=== PATIENT | female | born 1955 | race American Indian/Alaskan Native ===

== ENCOUNTER 2020-04-23 03:07 | Emergency (ER) | payer OTHER ==
[2020-04-23] MEDS ORDERED: ONDANSETRON 4 MG/2 ML INJ IV ONE ×2 (03:12→04:15)
[2020-04-23] MEDS ORDERED: SODIUM CHLORIDE 0.9% 1000 ML 1,000 ML IV ONE ×2 (03:12→06:04)
[2020-04-23] MEDS ORDERED: HYOSCYAMINE SUBL 0.125 MG TAB SL ONE (03:15)
--- NOTE | 2020-04-23 03:22 | Emergency Department Report ---
Blank Doc - Documentation Documentation: 34-year-old female past medical history of hypertension and and diverticuli re sents emerged department complaining of lower sudden onset of abdominal pain radiates to the epigastric region and in the chest sharp and burning in nature associated with palpitations and presyncope nausea and vomiting but no hemoptysis, no hematemesis no hematochezia. Abdominal pain is severe she states this feels similar to when she had diverticulitis This initial assessment/diagnostic orders/clinical plan/treatment(s) is/are subject to change based on patients health status, clinical progression and re- assessment by fellow clinical providers in the ED. Further treatment and workup at subsequent clinical providers discretion. Patient/guardian urged not to elope from the ED as their condition may be serious if not clinically assessed and managed. Initial orders include: Labs, EKG, CT scan abdomen due to the severity of her abdominal pain patient history
[2020-04-23 03:50] LABS: Basophils # (Auto) 0.2 K/mm3 (0.0-0.1); Basophils % (Auto) 2.3 % (0.0-1.8); Eosinophils % (Auto) 0.1 % (0.0-4.3); Hemoglobin 13.7 gm/dl (10.1-14.3); Lymphocytes # (Auto) 1.7 K/mm3 (1.2-5.4); Mean Corpuscular HGB Conc 35 % (30-34); Mean Corpuscular Volume 98 fl (79-97); Monocytes # (Auto) 0.5 K/mm3 (0.0-0.8); Monocytes % (Auto) 6.4 % (0.0-7.3); Platelet Count 309 K/mm3 (140-440); Red Blood Count 3.99 M/mm3 (3.65-5.03); Red Cell Distribution Width 14.6 % (13.2-15.2)
[2020-04-23 04:09] LABS: Alanine Aminotransferase 15 units/L (7-56); Albumin 4.9 g/dL (3.9-5); BUN/Creatinine Ratio 21; Blood Urea Nitrogen 21 mg/dL (7-17); Calcium 9.5 mg/dL (8.4-10.2); Hemolysis Index 6
[2020-04-23] MEDS ORDERED: FAMOTIDINE 20 MG/2 ML INJ IV ONE (04:15)
[2020-04-23] MEDS ORDERED: MORPHINE 4 MG/1 ML INJ IV ONE (04:15)
--- NOTE | 2020-04-23 04:17 | Emergency Department Report ---
<HERNAN DIXON - Last Filed: 04/23/20 06:14> ED N/V/D HPI - General Chief complaint: Nausea/Vomiting/Diarrhea Stated complaint: EMESIS Time Seen by Provider: 04/23/20 03:30 Source: patient Mode of arrival: Stretcher Limitations: No Limitations - History of Present Illness Initial comments: 64-year-old female with a past medical history of multiple bouts of diverticulitis without previous abdominal surgery and hypertension presents to the hospital with complaints of abdominal pain, nausea, vomiting with p.o. intolerance x1 day. Patient complains of generalized moderate to severe cramping and sharp abdominal pain worse with palpation and without alleviating factors. She reports vomiting greater than 15 times today including vomiting up her BP medication and multiple episodes of loose stool. She denies melena, hematochezia, fever, or hematemesis. She states symptoms feel similar to previous diverticulitis episodes - Related Data Home Medications Medication Instructions Recorded Confirmed Last Taken Amlodipine Besylate [Norvasc] 5 mg PO QPM 04/06/18 04/06/18 Unknown Azilsartan Medoxomil [Edarbi] 80 mg PO DAILY 04/06/18 04/06/18 Unknown Ergocalciferol [Vitamin D2] 1 cap PO QWEEK 04/06/18 04/06/18 Unknown Esomeprazole Magnesium [NexIUM] 40 mg PO QDAY 04/06/18 04/06/18 Unknown Metoprolol Succinate [Toprol Xl] 100 mg PO BID 04/06/18 04/06/18 Unknown Potassium Chloride [K-Dur] 20 meq PO QDAY 04/06/18 04/06/18 Unknown Rosuvastatin Calcium 20 mg PO HS 04/06/18 04/06/18 Unknown hydroCHLOROthiazide [HCTZ] 25 mg PO QDAY 04/06/18 04/06/18 Unknown Previous Rx's Medication Instructions Recorded Last Taken Type HYDROcodone/APAP 5-325 [[place] 1 - 2 each PO Q6HR PRN #20 tablet 04/06/18 Unknown Rx 5/325] Promethazine [Phenergan] 25 mg NC Q6HR PRN #5 supp.rect 04/06/18 Unknown Rx levoFLOXacin [Levaquin] 750 mg PO QDAY #10 tablet 04/06/18 Unknown Rx metroNIDAZOLE [Flagyl] 500 mg PO Q8HR #30 tablet 04/06/18 Unknown Rx Allergies Allergy/AdvReac Type Severity Reaction Status Date / Time No Known Allergies Allergy Unverified 04/06/18 14:56 ED Review of Systems Comment: All other systems reviewed and negative ED Past Medical Hx - Past Medical History Previous Medical History?: Yes Hx Hypertension: Yes Additional medical history: Diverticulitis - Surgical History Past Surgical History?: No - Social History Smoking Status: Never Smoker Substance Use Type: None - Medications Home Medications: Home Medications Medication Instructions Recorded Confirmed Last Taken Type Amlodipine Besylate [Norvasc] 5 mg PO QPM 04/06/18 04/06/18 Unknown History Azilsartan Medoxomil [Edarbi] 80 mg PO DAILY 04/06/18 04/06/18 Unknown History Ergocalciferol [Vitamin D2] 1 cap PO QWEEK 04/06/18 04/06/18 Unknown History Esomeprazole Magnesium [NexIUM] 40 mg PO QDAY 04/06/18 04/06/18 Unknown History HYDROcodone/APAP 5-325 [[place] 1 - 2 each PO Q6HR PRN #20 tablet 04/06/18 Unknown Rx 5/325] Metoprolol Succinate [Toprol Xl] 100 mg PO BID 04/06/18 04/06/18 Unknown History Potassium Chloride [K-Dur] 20 meq PO QDAY 04/06/18 04/06/18 Unknown History Promethazine [Phenergan] 25 mg NC Q6HR PRN #5 supp.rect 04/06/18 Unknown Rx Rosuvastatin Calcium 20 mg PO HS 04/06/18 04/06/18 Unknown History hydroCHLOROthiazide [HCTZ] 25 mg PO QDAY 04/06/18 04/06/18 Unknown History levoFLOXacin [Levaquin] 750 mg PO QDAY #10 tablet 04/06/18 Unknown Rx metroNIDAZOLE [Flagyl] 500 mg PO Q8HR #30 tablet 04/06/18 Unknown Rx ED Physical Exam - General Limitations: No Limitations - Other Other exam information: General: No acute distress Head: Atraumatic Eyes: normal appearance ENT: Moist mucous membranes Neck: Normal appearance, no midline tenderness Chest: Clear to auscultation bilaterally CV: Tachycardic regular rhythm Abdomen: Soft, normal bowel sounds, nondistended, generalized abdominal tenderness with guarding. No rebound Back: Normal inspection Extremity: Normal inspection, full range of motion Neuro: Alert O x 3, no facial asymmetry, speech clear, no gross motor sensory deficit Psych: Appropriate behavior Skin: No rash ED Course - Reevaluation(s) Reevaluation #1: 04/23/20 06:14 pt s/o to Dr Trotter to f/u ct results, repeat vitals and dispo as appropriate ED Medical Decision Making - Lab Data Result diagrams: 04/23/20 03:28 04/23/20 03:28 - EKG Data -: EKG Interpreted by Me EKG shows normal: sinus rhythm, intervals (QTC 574), ST-T waves (No STEMI) Rate: tachycardia (126) - Medical Decision Making 64-year-old female presents to the hospital with intractable nausea vomiting and generalized abdominal pain. Present history of diverticulitis reports symptoms are the same. Labs are fairly unremarkable. Patient presented initially with tachycardia. Patient treated with antiemetics, pain medication, IV fluid, Levsin, and morphine. At time of disposition CT abdomen pelvis results and diagnosis pending. Case signed out to oncoming physician Dr. Trotter to follow- up pending results, reassess patient including vital signs, and displays appropriate ED Disposition Clinical Impression: Acute abdominal pain, Acute nausea with nonbilious vomiting, Acute diarrhea Disposition: DC-01 TO HOME OR SELFCARE Condition: Stable Instructions: Nausea and Vomiting, Adult, Diarrhea, Adult, Abdominal Pain, Adult, [id number] Referrals: [facility], [Primary Care Provider] - 3-5 Days <GURU TROTTER - Last Filed: 04/23/20 07:35> ED Review of Systems ROS: Stated complaint: EMESIS Other details as noted in HPI ED Course Vital Signs 04/23/20 04/23/20 04/23/20 03:14 04:23 04:53 Temperature 97.9 F Pulse Rate 129 H Respiratory 18 18 18 Rate Blood Pressure 156/100 O2 Sat by Pulse 98 Oximetry ED Medical Decision Making - Lab Data Result diagrams: 04/23/20 03:28 04/23/20 03:28 - Medical Decision Making Patient is 64 years old female signed out to me by my colleague Dr. Mason. Patient presented to the ER complaining of generalized abdominal pain, vomiting and watery diarrhea started last night. Labs reviewed and is unremarkable. CT abdomen and pelvis showed no evidence of bowel obstruction, acute diverticulitis or any other acute abnormalities. Patient received multiple antiemetic medication and pain medication. Patient stated that she is feeling much better. No more vomiting observed in the ER. Patient given prescription for Zofran and tramadol and advised to follow-up with her primary care physician in the next 2 to 3 days and to return to the ER if she develop any new symptoms. Critical care attestation.: If time is entered above; I have spent that time in minutes in the direct care of this critically ill patient, excluding procedure time. ED Disposition Is pt being admited?: No
[2020-04-23 04:21] LABS: Free T4 (Free Thyroxine) 1.51 ng/dL (0.76-1.46)
[2020-04-23 04:22] LABS: Bilirubin,Direct < 0.2 mg/dL (0-0.2)
--- NOTE | 2020-04-23 06:06 | Cat Scan Report ---
CT ABDOMEN AND PELVIS WITH CONTRAST INDICATION: Pt complains of abdominal pain with N/V. Hx of Diverticulitis CONTRAST: 100 cc Omnipaque 300 IV COMPARISON: 04/06/[address] scans at this location are performed using CT dose reduction for ALARA by means of automated e xposure control. FINDINGS: Scarring is again noted in the lung bases, particularly in the right middle lobe. No pneumo peritoneum is seen. Fatty infiltration of the liver is noted without significant enlargement. Tiny cy st is again seen in the liver. Spleen appears within normal limits. No urinary obstructive changes ar e seen. No lymphadenopathy is noted. No free fluid is seen. Calcified left ovarian lesion is unchange d. No evidence of bowel obstruction is noted. Appendix shows no inflammation. Gallbladder and bile du cts appear within normal limits. Colonic diverticulosis is seen without evidence of diverticulitis. A ppearance of portions of the colon, particularly the descending colon and transverse colon, probably relates to lack of distention rather than pathology but is difficult to evaluate in the collapsed sta te. IMPRESSION: No acute abnormalities are seen Signer Name: Romulo Parry MD Signed: 04/23/2020 6:02 AM Workstation Name: [id number]
[2020-04-23] MEDS ORDERED: METOCLOPRAMIDE 10 MG/2 ML INJ IV ONE (07:33)
[2020-04-23] MEDS ORDERED: HYDROmorphone 1 MG/1 ML INJ IV ONE (07:33)
[2020-04-23 07:35] VITALS: BP 153/83
== END 2020-04-23 08:38 | disposition home or self-care (01) ==
LOC: ED 03:07
DX: R10.84 Generalized abdominal pain (principal); R11.2 Nausea with vomiting, unspecified; R19.7 Diarrhea, unspecified; I10 Essential (primary) hypertension; Z79.899 Other long term (current) drug therapy
CPT/HCPCS: 36415; 74177; 80048; 80076; 83690; 83735; 84439; 84443; 84484; 85025; 93005; 96361; 96374; 96375; 96376; 99284; J1170; J2270; J2405; J2765; J7030; Q9967

== ENCOUNTER 2020-05-24 21:50 | Emergency (ER) | payer OTHER ==
[2020-05-24] MEDS ORDERED: ONDANSETRON 4 MG ODT TAB PO ONE (22:08)
--- NOTE | 2020-05-24 22:10 | Event Note ---
ED Screening Note ED Screening Note: 64-year-old female presents emerge department complaining of nausea vomiting diarrhea for the last few days associated with abdominal pain and cramping that is worse with the vomiting episodes. Reports no fever, chills, sweats reports no hematuria or dysuria. This initial assessment/diagnostic orders/clinical plan/treatment(s) is/are subject to change based on patients health status, clinical progression and re- assessment by fellow clinical providers in the ED. Further treatment and workup at subsequent clinical providers discretion. Patient/guardian urged not to elope from the ED as their condition may be serious if not clinically assessed and managed. Initial orders include: Labs and Zofran will further evaluate for CT
[2020-05-24 23:04] LABS: Basophils # (Auto) 0.1 K/mm3 (0.0-0.1); Basophils % (Auto) 0.6 % (0.0-1.8); Hematocrit 43.3 % (30.3-42.9); Hemoglobin 14.4 gm/dl (10.1-14.3); Lymphocytes # (Auto) 0.8 K/mm3 (1.2-5.4); Lymphocytes % (Auto) 5.6 % (13.4-35.0); Mean Corpuscular HGB Conc 33 % (30-34); Mean Corpuscular Volume 100 fl (79-97); Monocytes # (Auto) 0.6 K/mm3 (0.0-0.8); Monocytes % (Auto) 4.3 % (0.0-7.3); Platelet Count 326 K/mm3 (140-440); Red Blood Count 4.35 M/mm3 (3.65-5.03); Red Cell Distribution Width 14.6 % (13.2-15.2)
[2020-05-24 23:20] LABS: Alanine Aminotransferase 17 units/L (7-56); Albumin 5.4 g/dL (3.9-5); BUN/Creatinine Ratio 16; Blood Urea Nitrogen 16 mg/dL (7-17); Calcium 10.4 mg/dL (8.4-10.2); Hemolysis Index 7
[2020-05-24 23:21] LABS: Bilirubin,Urine NEG (Negative); Blood,Urine SM (Negative); Color,Urine Straw (Yellow); Mucus,Urine FEW /HPF; Urobilinogen,Urine < 2.0 mg/dL (<2.0)
[2020-05-25] MEDS ORDERED: MORPHINE 4 MG/1 ML INJ IV ONE (02:38)
[2020-05-25] MEDS ORDERED: PANTOPRAZOLE 40 MG INJ IV ONE (02:38)
[2020-05-25] MEDS ORDERED: SODIUM CHLORIDE 0.9% 1000 ML 1,000 ML IV ONE (02:38)
--- NOTE | 2020-05-25 02:41 | Emergency Department Report ---
HPI - General Chief Complaint: Abdominal Pain Time Seen by Provider: 05/25/20 02:22 - HPI HPI: This is a 64-year-old -[place] female presents to the emergency department with complaint of generalized abdominal pain, nausea, vomiting and diarrhea. Overall the patient says that this has been going on since she was last in this emergency department about 1 month ago, but it has worsened over the past few days. The patient says that her ribs hurt from all of the vomiting. She says that she has vomited so much today that she is seeing some blood-tinged vomit. She denies any fever, dysuria, vaginal bleeding or discharge. The patient has a history of diverticulitis and hypertension. She has not taken anything for symptoms today prior to presentation. Her primary care physician is a Dr. Channing Donald. No recent travel or sick contacts at home. Currently she describes her abdominal pain as sharp, 9 out of 10 in intensity. It worsens with movement and palpation. No known alleviating factors. ED Past Medical Hx - Past Medical History Previous Medical History?: Yes Hx Hypertension: Yes Additional medical history: Diverticulitis - Surgical History Past Surgical History?: No - Social History Smoking Status: Current Every Day Smoker Substance Use Type: Alcohol, Marijuana - Medications Home Medications: Home Medications Medication Instructions Recorded Confirmed Last Taken Type Amlodipine Besylate [Norvasc] 5 mg PO QPM 04/06/18 04/06/18 Unknown History Azilsartan Medoxomil [Edarbi] 80 mg PO DAILY 04/06/18 04/06/18 Unknown History Ergocalciferol [Vitamin D2] 1 cap PO QWEEK 04/06/18 04/06/18 Unknown History Esomeprazole Magnesium [NexIUM] 40 mg PO QDAY 04/06/18 04/06/18 Unknown History HYDROcodone/APAP 5-325 [[place] 1 - 2 each PO Q6HR PRN #20 tablet 04/06/18 Unknown Rx 5/325] Metoprolol Succinate [Toprol Xl] 100 mg PO BID 04/06/18 04/06/18 Unknown History Potassium Chloride [K-Dur] 20 meq PO QDAY 04/06/18 04/06/18 Unknown History Promethazine [Phenergan] 25 mg OR Q6HR PRN #5 supp.rect 04/06/18 Unknown Rx Rosuvastatin Calcium 20 mg PO HS 04/06/18 04/06/18 Unknown History hydroCHLOROthiazide [HCTZ] 25 mg PO QDAY 04/06/18 04/06/18 Unknown History levoFLOXacin [Levaquin] 750 mg PO QDAY #10 tablet 04/06/18 Unknown Rx metroNIDAZOLE [Flagyl] 500 mg PO Q8HR #30 tablet 04/06/18 Unknown Rx traMADoL [Ultram 50 MG tab] 50 mg PO Q4HR PRN #14 tablet 04/23/20 Unknown Rx Ondansetron [Zofran ODT TAB] 4 mg PO Q8HR PRN #14 tab.rapdis 05/25/20 Unknown Rx ED Review of Systems ROS: Stated complaint: ABD PAIN/EMESIS Other details as noted in HPI Comment: All other systems reviewed and negative Constitutional: denies: chills, fever Eyes: denies: eye pain, vision change ENT: denies: ear pain, throat pain Respiratory: denies: cough, shortness of breath Cardiovascular: denies: chest pain, palpitations Gastrointestinal: abdominal pain, nausea, vomiting, diarrhea Genitourinary: denies: dysuria, discharge Musculoskeletal: denies: back pain, arthralgia Skin: denies: rash, lesions Neurological: denies: headache, weakness Physical Exam - Physical Exam Vital Signs: Vital Signs 05/24/20 22:03 Temperature 98.4 F Pulse Rate 111 H Respiratory 16 Rate Blood Pressure 171/91 O2 Sat by Pulse 95 Oximetry Physical Exam: GENERAL: The patient is well-developed well-nourished. HENT: Normocephalic. Atraumatic. Patient has moist mucous membranes. EYES: Extraocular motions are intact. NECK: Supple. Trachea is midline. CHEST/LUNGS: Clear to auscultation. There is no respiratory distress noted. HEART/CARDIOVASCULAR: Regular. There is mild tachycardia. There is no murmur. ABDOMEN: Abdomen is soft. There is generalized abdominal tenderness to palpation. No guarding. Patient has normal bowel sounds. There is no abdominal distention. SKIN: Skin is warm and dry. NEURO: The patient is awake, alert, and oriented. The patient is cooperative. The patient has no focal neurologic deficits. Normal speech. MUSCULOSKELETAL: There is no tenderness or deformity. There is no limitation r tony of motion. ED Course Vital Signs 05/24/20 22:03 Temperature 98.4 F Pulse Rate 111 H Respiratory 16 Rate Blood Pressure 171/91 O2 Sat by Pulse 95 Oximetry ED Medical Decision Making - Lab Data Result diagrams: 05/24/20 22:36 05/24/20 22:36 - EKG Data -: EKG Interpreted by Me EKG shows normal: sinus rhythm, axis, intervals, QRS complexes, ST-T waves (Nonspecific ST-T waves) Rate: normal - EKG Data When compared to previous EKG there are: no significant change Interpretation: unchanged when compared t (04/23/20) - Radiology Data Radiology results: report reviewed CT ABDOMEN AND PELVIS WITH CONTRAST INDICATION / CLINICAL INFORMATION: Generalized abd pain, Lower > Upper. TECHNIQUE: Axial CT images were obtained through the abdomen and pelvis after IV contrast. All CT scans at this location are performed using CT dose reduction for ALARA by means of automated exposure control. COMPARISON: 04/23/2020. FINDINGS: LOWER CHEST: No significant abnormality LIVER: Hepatic steatosis. GALLBLADDER/BILIARY TREE: No significant abnormality PANCREAS: No significant abnormality SPLEEN: No significant abnormality ADRENALS: No significant abnormality KIDNEYS / URETER: No significant abnormality URINARY BLADDER: No significant abnormality REPRODUCTIVE ORGANS: Stable calcified left adnexal lesion. STOMACH / SMALL BOWEL: Stomach and small bowel are normal in caliber. No evidence of bowel inflammation. COLON: Colonic diverticulosis without evidence of diverticulitis. The appendix is normal in caliber. LYMPH NODES: No significant adenopathy. VASCULATURE: No signi ficant abnormality. OTHER: No free air, free fluid, or focal fluid collection is identified. SKELETAL SYSTEM: Chronic osseous findings are stable. IMPRESSION: No acute abnormality of the abdomen or pelvis. - Medical Decision Making This patient presents with nausea, vomiting and generalized abdominal pain. On examination there is some reproducible tenderness to palpation but the abdomen is soft, nondistended and nontoxic in appearance. Patient's labs have been most ly unremarkable except for some signs of dehydration. CT scan of the abdomen and pelvis with IV contrast does not show any acute intra-abdominal or pelvic process. The patient was given IV analgesia, IV antiemetics and some IV fluid resuscitation. Upon reevaluation she is feeling improved and able to pass an oral challenge. For all these reasons the patient appears safe for discharge home at this time. She has good outpatient follow-up with primary care and has been given an outpatient referral for gastroenterology. She will return to the emergency department with any worsening of her symptoms or with any acute distress. Critical Care Time: No Critical care attestation.: If time is entered above; I have spent that time in minutes in the direct care of this critically ill patient, excluding procedure time. ED Disposition Clinical Impression: Dehydration Abdominal pain Qualifiers: Abdominal location: unspecified location Qualified Code(s): R10.9 - Unspecified abdominal pain Nausea & vomiting Qualifiers: Vomiting type: unspecified Vomiting Intractability: non-intractable Qualified Code(s): R11.2 - Nausea with vomiting, unspecified Hypertension Qualifiers: Hypertension type: essential hypertension Qualified Code(s): I10 - Essential (primary) hypertension Disposition: TO HOME OR SELFCARE Is pt being admited?: No Condition: Stable Instructions: Abdominal Pain, Adult, Nausea and Vomiting, Adult, Hypertension, Adult, Dehydration, Adult, Abdominal Pain (ED), Hypertension (ED) Additional Instructions: Please follow-up with your primary care physician in the next few days. I am giving you a referral for [place] [facility] to follow-up regarding your abdominal pains. Increase your oral rehydration. Take your medications as prescribed. Return to the emergency department with any worsening of your symptoms, new or concerning symptoms not addressed during this current emergency department visit, or with any acute distress. Prescriptions: Ondansetron [Zofran ODT TAB] 4 mg PO Q8HR PRN #14 tab.rapdis PRN Reason: Nausea And Vomiting Referrals: [facility] [Other] - 3-5 Days [facility] [Provider Group] - 3-5 Days Time of Disposition: 04:40
[2020-05-25] MEDS ORDERED: ONDANSETRON 4 MG/2 ML INJ ONE (02:56)
[2020-05-25] MEDS ORDERED: ONDANSETRON 4 MG/2 ML INJ IV ONE (02:57)
--- NOTE | 2020-05-25 03:38 | Cat Scan Report ---
CT ABDOMEN AND PELVIS WITH CONTRAST INDICATION / CLINICAL INFORMATION: Generalized abd pain, Lower > Upper. TECHNIQUE: Axial CT images were obtained through the abdomen and pelvis after IV contrast. All CT sc ans at this location are performed using CT dose reduction for ALARA by means of automated exposure c ontrol. COMPARISON: 04/23/2020. FINDINGS: LOWER CHEST: No significant abnormality LIVER: Hepatic steatosis. GALLBLADDER/BILIARY TREE: No significant abnormality PANCREAS: No significant abnormality SPLEEN: No significant abnormality ADRENALS: No significant abnormality KIDNEYS / URETER: No significant abnormality URINARY BLADDER: No significant abnormality REPRODUCTIVE ORGANS: Stable calcified left adnexal lesion. STOMACH / SMALL BOWEL: Stomach and small bowel are normal in caliber. No evidence of bowel inflammati on. COLON: Colonic diverticulosis without evidence of diverticulitis. The appendix is normal in caliber. LYMPH NODES: No significant adenopathy. VASCULATURE: No significant abnormality. OTHER: No free air, free fluid, or focal fluid collection is identified. SKELETAL SYSTEM: Chronic osseous findings are stable. IMPRESSION: No acute abnormality of the abdomen or pelvis. Signer Name: Boo Rodriguez MD Signed: 05/25/2020 3:34 AM Workstation Name: [id number]
[2020-05-25 05:03] VITALS: BP 116/71
== END 2020-05-25 05:04 | disposition home or self-care (01) ==
LOC: ED 21:50
DX: E86.0 Dehydration (principal); R10.84 Generalized abdominal pain; R11.2 Nausea with vomiting, unspecified; I10 Essential (primary) hypertension; F17.200 Nicotine dependence, unspecified, uncomplicated; F12.10 Cannabis abuse, uncomplicated; Z79.899 Other long term (current) drug therapy
CPT/HCPCS: 36415; 74177; 80053; 81001; 83690; 85025; 93005; 96361; 96374; 96375; 99284; C9113; J2270; J2405; J7030; Q9967; Q0162

== ENCOUNTER 2020-10-18 09:11 | Emergency (ER) | payer OTHER ==
[2020-10-18 09:50] VITALS: BP 161/88
[2020-10-18 10:23] LABS: Bilirubin,Urine NEG (Negative); Blood,Urine MOD (Negative); Color,Urine Yellow (Yellow); Mucus,Urine 1+ /HPF; Urobilinogen,Urine < 2.0 mg/dL (<2.0)
--- NOTE | 2020-10-18 10:41 | Emergency Department Report ---
ED Abdominal Pain HPI - General Chief Complaint: Nausea/Vomiting/Diarrhea Stated Complaint: NAUSEA/ VOMINTING/ SORE THROAT Time Seen by Provider: 10/18/20 10:20 Source: patient Mode of arrival: Ambulatory Limitations: No Limitations - History of Present Illness Initial Comments: 64-year-old -[place] female with a past medical history of hypertension diverticulitis presents to the emergency room complaining of 2-day history of vomiting nausea epigastric pain sore throat from vomiting with reported fever. Patient admits to diarrhea that resolved yesterday. She has not been able to eat or have a bowel movement since. She admits to dysuria nausea vomiting last this morning. Patient does have a primary care provider Dr. Donald in [place] next appointment is this week. MD Complaint: abdominal pain Onset/Timin -: days(s) Location: diffuse Radiation: none Migration to: no migration Severity scale (0 -10): 10 Quality: stabbing, sharp Consistency: constant Improves With: nothing Worsens With: vomiting Associated Symptoms: nausea, vomiting, diarrhea, dysuria - Related Data Home Medications Medication Instructions Recorded Confirmed Last Taken Amlodipine Besylate [Norvasc] 5 mg PO QPM 04/06/18 04/06/18 Unknown Azilsartan Medoxomil [Edarbi] 80 mg PO DAILY 04/06/18 04/06/18 Unknown Ergocalciferol [Vitamin D2] 1 cap PO QWEEK 04/06/18 04/06/18 Unknown Esomeprazole Magnesium [NexIUM] 40 mg PO QDAY 04/06/18 04/06/18 Unknown Metoprolol Succinate [Toprol Xl] 100 mg PO BID 04/06/18 04/06/18 Unknown Potassium Chloride [K-Dur] 20 meq PO QDAY 04/06/18 04/06/18 Unknown Rosuvastatin Calcium 20 mg PO HS 04/06/18 04/06/18 Unknown hydroCHLOROthiazide [HCTZ] 25 mg PO QDAY 04/06/18 04/06/18 Unknown Previous Rx's Medication Instructions Recorded Last Taken Type HYDROcodone/APAP 5-325 [[place] 1 - 2 each PO Q6HR PRN #20 tablet 04/06/18 Unknown Rx 5/325] Promethazine [Phenergan] 25 mg [place] Q6HR PRN #5 supp.rect 04/06/18 Unknown Rx levoFLOXacin [Levaquin] 750 mg PO QDAY #10 tablet 04/06/18 Unknown Rx metroNIDAZOLE [Flagyl] 500 mg PO Q8HR #30 tablet 04/06/18 Unknown Rx traMADoL [Ultram 50 MG tab] 50 mg PO Q4HR PRN #14 tablet 04/23/20 Unknown Rx Ondansetron [Zofran ODT TAB] 4 mg PO Q8HR PRN #14 tab.rapdis 10/18/20 Unknown Rx Allergies Allergy/AdvReac Type Severity Reaction Status Date / Time No Known Allergies Allergy Verified 05/24/20 22:06 ED Review of Systems ROS: Stated complaint: NAUSEA/ VOMINTING/ SORE THROAT Other details as noted in HPI Comment: All other systems reviewed and negative ED Past Medical Hx - Past Medical History Previous Medical History?: Yes Hx Hypertension: Yes Additional medical history: Diverticulitis - Surgical History Past Surgical History?: Yes Additional Surgical History: - Social History Smoking Status: Current Every Day Smoker Substance Use Type: Marijuana - Medications Home Medications: Home Medications Medication Instructions Recorded Confirmed Last Taken Type Amlodipine Besylate [Norvasc] 5 mg PO QPM 04/06/18 04/06/18 Unknown History Azilsartan Medoxomil [Edarbi] 80 mg PO DAILY 04/06/18 04/06/18 Unknown History Ergocalciferol [Vitamin D2] 1 cap PO QWEEK 04/06/18 04/06/18 Unknown History Esomeprazole Magnesium [NexIUM] 40 mg PO QDAY 04/06/18 04/06/18 Unknown History HYDROcodone/APAP 5-325 [[place] 1 - 2 each PO Q6HR PRN #20 tablet 04/06/18 Unknown Rx 5/325] Metoprolol Succinate [Toprol Xl] 100 mg PO BID 04/06/18 04/06/18 Unknown History Potassium Chloride [K-Dur] 20 meq PO QDAY 04/06/18 04/06/18 Unknown History Promethazine [Phenergan] 25 mg [place] Q6HR PRN #5 supp.rect 04/06/18 Unknown Rx Rosuvastatin Calcium 20 mg PO HS 04/06/18 04/06/18 Unknown History hydroCHLOROthiazide [HCTZ] 25 mg PO QDAY 04/06/18 04/06/18 Unknown History levoFLOXacin [Levaquin] 750 mg PO QDAY #10 tablet 04/06/18 Unknown Rx metroNIDAZOLE [Flagyl] 500 mg PO Q8HR #30 tablet 04/06/18 Unknown Rx traMADoL [Ultram 50 MG tab] 50 mg PO Q4HR PRN #14 tablet 04/23/20 Unknown Rx Ondansetron [Zofran ODT TAB] 4 mg PO Q8HR PRN #14 tab.rapdis 10/18/20 Unknown Rx ED Physical Exam - General Limitations: No Limitations General appearance: alert, in no apparent distress, other (Patient smells strong of urine) - Head Head exam: Present: atraumatic, normocephalic - Eye Eye exam: Present: normal appearance - ENT ENT exam: Present: normal exam, normal external ear exam - Neck Neck exam: Present: normal inspection, full ROM - Respiratory Respiratory exam: Present: normal lung sounds bilaterally. Absent: respiratory distress, wheezes, accessory muscle use - Cardiovascular Cardiovascular Exam: Present: regular rate - GI/Abdominal GI/Abdominal exam: Present: soft, tenderness, guarding (Epigastric), normal bowel sounds. Absent: distended - Extremities Exam Extremities exam: Present: normal inspection, full ROM - Back Exam Back exam: Present: normal inspection, full ROM - Neurological Exam Neurological exam: Present: alert, oriented X3, normal gait - Psychiatric Psychiatric exam: Present: normal affect, normal mood - Skin Skin exam: Present: warm, dry, intact, normal color. Absent: rash ED Course Vital Signs 10/18/20 09:43 Temperature 99.1 F Pulse Rate 78 Respiratory 20 Rate Blood Pressure 161/88 O2 Sat by Pulse 98 Oximetry ED Medical Decision Making - Lab Data Result diagrams: 10/18/20 10:04 10/18/20 10:04 - Radiology Data Radiology results: report reviewed [facility] [address] [place] [address] Cat Scan Report Signed Patient: CARMINA AYALA MR#: [id number] : 1955 Acct:[id number] Age/Sex: 64 / F ADM Date: 10/18/20 Loc: ED Attending Dr: Ordering Physician: LADARIUS YOUNG Date of Service: 10/18/20 Procedure(s): CT abdomen pelvis w con Accession Number(s): [id number] cc: LADARIUS YOUNG CT ABDOMEN AND PELVIS WITH CONTRAST HISTORY: Nausea, vomiting, abdominal pain COMPARISON: 05/25/2020 TECHNIQUE: Routine abdominal and pelvic CT exam performed following intravenous contrast administration.. All CT scans at this location are performed using CT dose reduction for ALARA by means of automated exposure control. FINDINGS: CT ABDOMEN: Lung Bases: Mild bibasilar subsegmental atelectasis. Liver: Decreased attenuation consistent with hepatic steatosis. Biliary: No significant abnormality. Spleen: No significant abnormality. Unenlarged. Pancreas: No significant abnormality. Adrenals: No significant abnormality. Kidneys: No significant abnormality. Lymphatics: No lymphadenopathy. Vasculature: No significant abnormality. Bowel/Peritoneum: No significant abnormality. No free air. No free fluid. Normal appendix. CT PELVIC: : Stable 3 cm calcified left adnexal lesion dating back to 04/06/2018 suggestive of a benign etiology. Lymphatics: No lymphadenopathy. Osseous Structures: No aggressive appearing osseous lesions. Additional Findings: None IMPRESSION: 1. No acute findings or adverse change from prior exams. Signer Name: Devin Cornelius MD Signed: 10/18/2020 11:52 AM Workstation Name: [id number] Transcribed By: UMER Dictated By: Devin Cornelius MD Electronically Authenticated By: Devin Cornelius MD Signed Date/Time: 10/18/20 115 DD/ 1151 TD/TT: Print Cancel - Medical Decision Making 64-year-old -[place] female with a past medical history of hypertension diverticulitis presents to the emergency room complaining of 2-day history of vomiting nausea epigastric pain sore throat from vomiting with reported fever. Patient admits to diarrhea that resolved yesterday. She has not been able to eat or have a bowel movement since. She admits to dysuria nausea vomiting last this morning. Patient does have a primary care provider Dr. Donald in [place] next appointment is this week. CBC, CMP, lipase and urinalysis as well as a CT abdomen with contrast. CT scan shows no acute abnormalities The patient is resting comfortably and feels better, is alert and in no distress. The repeat examination is unremarkable and benign; in particular, there is no discomfort at the McBurney's point and there is no pulsating mass. The history, exam and diagnostic testing, and current condition do not suggest an acute appendicitis, bowel obstruction, or acute cholecystitis, bowel perforation, major gastrointestinal bleeding, severe diverticulitis, abdominal aorta, mesenteric ischemia, volvulus, sepsis, or other significant pathology to warrant further testing, continued ED treatment, admission, or surgical evaluation at this point. The vital signs have been stable. The patient does not have uncomfortable pain, irretractable vomiting, or other significant symptoms. The patient's condition is stable and appropriate for discharge from the emergency room. The patient will pursue further outpatient evaluation with the primary care physician or other designated or consulting physician as indicated in the discharge instructions. Critical care attestation.: If time is entered above; I have spent that time in minutes in the direct care of this critically ill patient, excluding procedure time. ED Disposition Clinical Impression: Abdominal pain Disposition: TO HOME OR SELFCARE Is pt being admited?: No Does the pt Need Aspirin: No Condition: Stable Instructions: Abdominal Pain, Adult, [id number] Additional Instructions: Labs are stable CT scan is negative for any acute abnormalities. Please take the Zofran as needed for the nausea vomiting and follow-up with your primary care provider as well as a school resource officer. Prescriptions: Ondansetron [Zofran ODT TAB] 4 mg PO Q8HR PRN #14 tab.rapdis PRN Reason: Nausea And Vomiting Referrals: SHANTEL DONALD [Other] - 3-5 Days [facility] [Provider Group] - 3-5 Days Time of Disposition: 12:42
[2020-10-18] MEDS ORDERED: MORPHINE 2 MG/1 ML INJ IV ONE (10:42)
[2020-10-18] MEDS ORDERED: ONDANSETRON 4 MG/2 ML INJ IV ONE (10:42)
[2020-10-18] MEDS ORDERED: SODIUM CHLORIDE 0.9% 1000 ML 1,000 ML IV ONE (10:42)
[2020-10-18 10:50] LABS: Basophils # (Auto) 0.1 K/mm3 (0.0-0.1); Basophils % (Auto) 0.9 % (0.0-1.8); Eosinophils % (Auto) 0.4 % (0.0-4.3); Hematocrit 41.5 % (30.3-42.9); Hemoglobin 14.6 gm/dl (10.1-14.3); Lymphocytes # (Auto) 1.8 K/mm3 (1.2-5.4); Lymphocytes % (Auto) 13.9 % (13.4-35.0); Mean Corpuscular HGB Conc 35 % (30-34); Mean Corpuscular Volume 93 fl (79-97); Monocytes % (Auto) 7.8 % (0.0-7.3); Platelet Count 327 K/mm3 (140-440); Red Blood Count 4.48 M/mm3 (3.65-5.03); Red Cell Distribution Width 13.6 % (13.2-15.2)
[2020-10-18 11:03] LABS: Alanine Aminotransferase 18 units/L (7-56); Albumin 5.2 g/dL (3.9-5); BUN/Creatinine Ratio 11; Blood Urea Nitrogen 10 mg/dL (7-17); Calcium 10.8 mg/dL (8.4-10.2); Hemolysis Index 4
--- NOTE | 2020-10-18 11:57 | Cat Scan Report ---
CT ABDOMEN AND PELVIS WITH CONTRAST HISTORY: Nausea, vomiting, abdominal pain COMPARISON: 05/25/2020 TECHNIQUE: Routine abdominal and pelvic CT exam performed following intravenous contrast administrat ion.. All CT scans at this location are performed using CT dose reduction for ALARA by means of autom ated exposure control. FINDINGS: CT ABDOMEN: Lung Bases: Mild bibasilar subsegmental atelectasis. Liver: Decreased attenuation consistent with hepatic steatosis. Biliary: No significant abnormality. Spleen: No significant abnormality. Unenlarged. Pancreas: No significant abnormality. Adrenals: No significant abnormality. Kidneys: No significant abnormality. Lymphatics: No lymphadenopathy. Vasculature: No significant abnormality. Bowel/Peritoneum: No significant abnormality. No free air. No free fluid. Normal appendix. CT PELVIC: : Stable 3 cm calcified left adnexal lesion dating back to 04/06/2018 suggestive of a benign etiology . Lymphatics: No lymphadenopathy. Osseous Structures: No aggressive appearing osseous lesions. Additional Findings: None IMPRESSION: 1. No acute findings or adverse change from prior exams. Signer Name: Devin Cornelius MD Signed: 10/18/2020 11:52 AM Workstation Name: [id number]
== END 2020-10-18 13:03 | disposition home or self-care (01) ==
LOC: ED 09:11
DX: R10.84 Generalized abdominal pain (principal); R30.0 Dysuria; I10 Essential (primary) hypertension; F17.290 Nicotine dependence, other tobacco product, uncomplicated; Z98.890 Other specified postprocedural states
CPT/HCPCS: 36415; 74177; 80053; 81001; 83690; 85025; 96361; 96374; 96375; 99284; J2270; J2405; J7030; Q9967